=== PATIENT | male | born 1960 | race Caucasian/White ===

== ENCOUNTER 2022-06-03 09:30 | Emergency (ER) | payer MEDICAID ==
[~2022-06-03] VITALS: Ht 188 cm; Wt 109.3 kg
--- NOTE | 2022-06-03 09:43 | NUR ---
covid swab collected and sent to lab
--- NOTE | 2022-06-03 09:50 | NUR ---
AT BEDSIDE FOR EVAL
--- NOTE | 2022-06-03 10:34 | NUR ---
CALLED [facility] FOR TRANSPORT ETA [id number]
[2022-06-03 11:16] VITALS: BP 116/70
[2022-06-03] MEDS ORDERED: LISI30TA4 PO (14:54)
[2022-06-03] MEDS ORDERED: DULO60CA64 PO (14:54)
[2022-06-03] MEDS ORDERED: INSU100I40 SQ (14:54)
[2022-06-03] MEDS ORDERED: MELA3TAB41 PO (14:54)
[2022-06-03] MEDS ORDERED: FOLI-140 PO (14:54)
[2022-06-03] MEDS ORDERED: METH10TA2 PO (14:54)
[2022-06-03] MEDS ORDERED: CLON0.1T PO (14:54)
[2022-06-03] MEDS ORDERED: CIPR500T5 PO (14:54)
[2022-06-03] MEDS ORDERED: CYAN100T9 PO (14:54)
[2022-06-03] MEDS ORDERED: INSU100I26 SQ (14:54)
[2022-06-03] MEDS ORDERED: DOCU-141 PO (14:54)
[2022-06-03] MEDS ORDERED: FERR325T24 PO (14:54)
[2022-06-03] MEDS ORDERED: METF-442 PO (14:54)
[2022-06-03] MEDS ORDERED: MAGN400T52 PO (14:54)
[2022-06-03] MEDS ORDERED: ATOR40TA PO (14:54)
[2022-06-03] MEDS ORDERED: GABA300C PO (14:54)
[2022-06-03] MEDS ORDERED: CHOL200010 PO (14:54)
[2022-06-03] MEDS ORDERED: BISA10SU11 RC (14:54)
[2022-06-03] MEDS ORDERED: ONDA4TAB5 PO (15:04)
[2022-06-03] MEDS ORDERED: ACET325T53 PO (15:04)
[2022-06-03] MEDS ORDERED: HYDR4TAB4 PO (15:04)
== END 2022-06-03 11:18 ==
LOC: ER 09:40
DX: E11.621 Type 2 diabetes mellitus with foot ulcer (principal); L97.419 Non-pressure chronic ulcer of right heel and midfoot with unspecified severity; Z20.822 Contact with and (suspected) exposure to COVID-19
CPT/HCPCS: 99283; 87426; C9803

== ENCOUNTER 2022-06-03 12:19 | Emergency (ER) | payer MEDICAID ==
[~2022-06-03] VITALS: Ht 188 cm; Wt 109.3 kg
[2022-06-03 12:23] VITALS: BP 118/69
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
[2022-06-03] MEDS ORDERED: VANCOMYCIN 1 GM in IV D5W 250 ML IV ONE (12:30)
--- NOTE | 2022-06-03 12:57 | NUR ---
XRAY AT BEDSIDE
[2022-06-03 13:10] LABS: BASOPHILS % (AUTO) 0.2 % (0.0-2.0); EOSINOPHILS % (AUTO) 2.2 % (0.0-6.0); HEMATOCRIT 27 % (39-51); HEMOGLOBIN 8.5 g/dL (13.5-17.5); LYMPHOCYTES # (AUTO) 0.7 K/uL (0.8-4.8); LYMPHOCYTES % (AUTO) 16.3 % (20.0-44.0); MEAN CORPUSCULAR HGB CONC 32 g/dl (31.0-36.0); MEAN CORPUSCULAR VOLUME 79 fL (80-96); MONOCYTES # (AUTO) 0.4 K/uL (0.1-1.30); MONOCYTES % (AUTO) 9.6 % (2.0-12.0); NEUTROPHILS # (AUTO) 3.2 K/uL (1.8-8.9); NEUTROPHILS % (AUTO) 71.7 % (43.0-81.0); PLATELET COUNT (AUTO) 148 K/uL (150-450); WHITE BLOOD COUNT (AUTO) 4.5 K/uL (4.3-11.0)
[2022-06-03 13:45] LABS: ALBUMIN 2.3 g/dL (3.4-5.0); BILIRUBIN,DIRECT 0.1 mg/dL (0.0-0.2); BILIRUBIN,TOTAL 0.3 mg/dL (0.2-1.0); CALCIUM, SERUM 8.6 mg/dL (8.5-10.1); CREATININE 1.2 mg/dL (0.6-1.3); POTASSIUM 4.7 mmol/L (3.5-5.1); TOTAL PROTEIN, SERUM 7.3 g/dL (6.4-8.2)
--- NOTE | 2022-06-03 14:41 | NUR ---
[facility] [phone]
[2022-06-03] MEDS ORDERED: DOCU-141 PO (14:54)
[2022-06-03] MEDS ORDERED: INSU100I40 SQ (14:54)
[2022-06-03] MEDS ORDERED: INSU100I26 SQ (14:54)
[2022-06-03] MEDS ORDERED: LISI30TA4 PO (14:54)
[2022-06-03] MEDS ORDERED: ATOR40TA PO (14:54)
[2022-06-03] MEDS ORDERED: METH10TA2 PO (14:54)
[2022-06-03] MEDS ORDERED: GABA300C PO (14:54)
[2022-06-03] MEDS ORDERED: CHOL200010 PO (14:54)
[2022-06-03] MEDS ORDERED: MAGN400T52 PO (14:54)
[2022-06-03] MEDS ORDERED: MELA3TAB41 PO (14:54)
[2022-06-03] MEDS ORDERED: CIPR500T5 PO (14:54)
[2022-06-03] MEDS ORDERED: DULO60CA64 PO (14:54)
[2022-06-03] MEDS ORDERED: BISA10SU11 RC (14:54)
[2022-06-03] MEDS ORDERED: METF-442 PO (14:54)
[2022-06-03] MEDS ORDERED: CYAN100T9 PO (14:54)
[2022-06-03] MEDS ORDERED: CLON0.1T PO (14:54)
[2022-06-03] MEDS ORDERED: FOLI-140 PO (14:54)
[2022-06-03] MEDS ORDERED: FERR325T24 PO (14:54)
--- NOTE | 2022-06-03 15:01 | NUR ---
DR. FELDER SPEAKING WITH DR. PARRISH
[2022-06-03] MEDS ORDERED: ACET325T53 PO (15:04)
[2022-06-03] MEDS ORDERED: HYDR4TAB4 PO (15:04)
[2022-06-03] MEDS ORDERED: ONDA4TAB5 PO (15:04)
--- NOTE | 2022-06-03 15:35 | NUR ---
PT ACCEPTED TO [facility] UNDER DR. FELDER. ROOM 122-A PLEASE CALL FOR REPORT [phone]. TRANSPORT WILL BE HERE [id number] PER [facility] @ [phone]
--- NOTE | 2022-06-03 15:59 | NUR ---
report given to [facility] receiving Nurse
--- NOTE | 2022-06-03 18:14 | NUR ---
ROOM 206B AT [facility] PER RAY.
--- NOTE | 2022-06-03 19:51 | NUR ---
[facility] AT BEDSIDE FOR TRANSPORT TO [facility].
== END 2022-06-03 20:05 | disposition short-term general hospital (02) ==
LOC: ER 12:36
DX: E11.621 Type 2 diabetes mellitus with foot ulcer (principal); L97.519 Non-pressure chronic ulcer of other part of right foot with unspecified severity
CPT/HCPCS: 99285; 96365; 73630; 73590; 85025; 80048; 80076; 85652; 36415; 86140; J3370; A4223; J7060